=== PATIENT | female | born 1985 | race Caucasian/White ===

== ENCOUNTER → 2023-06-07 11:08 | Outpatient (CLI) | payer OTHER, SELFPAY ==
--- NOTE | 2023-06-07 11:13 | DI.MRI.S_ITS ---
BREAST MRI OF BOTH BREASTS: 06/07/2023 CLINICAL: Right breast cancer. PROCEDURE: MR BREAST BI WO/W CON INDICATIONS: RIGHT BREAST CANCER TECHNIQUE: The patient was placed prone in a dedicated breast imaging coil. Precontrast axial STIR and 3D FLASH without fat saturation sequences were obtained. Both before and after bolus injection of contrast, sequential 1-minute axial 3D FLASH with fat saturation sequences for 3 time points, with subtraction images and maximum intensity projections (MIP's) generated. Delayed sagittal FLASH images with fat saturation were also obtained. Computer-aided detection, including computer algorithm analysis of MRI image data for lesion detection and characterization, pharmacokinetic analysis, with further physician review for interpretation, was performed. COMPARISON: [facility], US, US BREAST LIMITED RIGHT, 05/02/2023, 13:35. FINDINGS: Image quality: Excellent. Right breast: There is extensive background enhancement. Masslike enhancement is present within the right breast at 12:00 o'clock at a middle depth which measures 0.6 x 0.8 x 1.7 cm. This corresponds with the biopsy-proven neoplasm. This lesion measured 0.4 x 1.0 x 1.1 cm on the comparison ultrasound dated May 02, 2023. There are multiple nodular foci of enhancement within the upper outer quadrant of the right breast at a posterior depth. Although scattered foci of enhancement are present within the left breast, these are much more numerous in the upper outer quadrant of the right breast than the left. There is a 0.6 x 0.4 focus of enhancement within the right breast in the subareolar region at 9 o'clock (series 13/image 73 and series 17/image 46). There is also a 0.6 x 0.9 by 0.7 cm region of masslike enhancement within the right breast at 6 o'clock, approximately 2.5 cm from the nipple (series 10/image 59 and series 17/image 59). Left breast: There is extensive background enhancement similar to the right breast. There is a 0.7 x 0.6 x 0.5 cm focus of masslike enhancement within the left breast at 4 o'clock (series 18/image 75 and series 10/image 63). No other suspicious foci of enhancement or discrete mass lesions. Miscellaneous: No axillary adenopathy. No intramammary adenopathy. Limited visualization of the heart, lungs, and mediastinum have a normal appearance. IMPRESSION: INCOMPLETE: NEEDS ADDITIONAL IMAGING EVALUATION 1. Biopsy-proven neoplasm at 12 o'clock in the right breast. 2. Multiple nodular foci of enhancement within the upper outer quadrant of the right breast. Although these may represent background enhancement, they appear more numerous than in the left upper outer quadrant. Second-look ultrasound recommended to further characterize this finding and evaluate for multicentric disease. 3. Right subareolar mass. Second-look ultrasound recommended. 4. Masslike enhancement at 6:00 o'clock in the right breast. Second-look ultrasound recommended. 5. Masslike enhancement at 4:00 o'clock in the left breast. Second-look ultrasound recommended. Electronically Signed By: Yumiko Baez M.D. lk/:06/07/2023 15:58:16 letter sent: Additional Imaging Needed ACR BI-RADS Category 0: Incomplete [id number]
== END ==
PROVIDERS: PCP Nurse Practitioner Family; Referring Provider Student in an Organized Health Care Education/Training Program; Visit Provider Student in an Organized Health Care Education/Training Program
DX: C50.411 Malignant neoplasm of upper-outer quadrant of right female breast (principal); N63.15 Unspecified lump in the right breast, overlapping quadrants; N63.23 Unspecified lump in the left breast, lower outer quadrant; Z17.0 Estrogen receptor positive status [ER+]
CPT/HCPCS: 77049; A9579

== ENCOUNTER → 2024-08-13 10:08 | Outpatient (CLI) | payer OTHER, SELFPAY ==
[2024-08-13 11:50] LABS: Clostridium Difficile Tox PCR Positive for C. diff (Negative)
[2024-08-14 14:12] LABS: C difficie Toxins A and B, EIA Positive (Negative)
== END ==
PROVIDERS: PCP Nurse Practitioner Family; Referring Provider Nurse Practitioner Adult Health; Visit Provider Nurse Practitioner Adult Health
DX: Z86.19 Personal history of other infectious and parasitic diseases (principal)
CPT/HCPCS: 87324; 87493

== ENCOUNTER → 2024-09-05 09:47 | Outpatient (CLI) | payer OTHER, SELFPAY ==
[2024-09-05 11:38] LABS: Clostridium Difficile Tox PCR Positive for C. diff (Negative)
[2024-09-06 15:10] LABS: C difficie Toxins A and B, EIA Positive (Negative)
== END ==
PROVIDERS: PCP Nurse Practitioner Family; Referring Provider Nurse Practitioner Family; Visit Provider Nurse Practitioner Adult Health
DX: A04.71 Enterocolitis due to Clostridium difficile, recurrent (principal)
CPT/HCPCS: 87324; 87493